=== PATIENT | male | born 1970 | race Caucasian/White ===

== ENCOUNTER 2020-07-04 08:28 | Outpatient (REF) | payer SELFPAY ==
[2020-07-04 08:49] LABS: Chol HDL Ratio 5.08 mg/dL (1.0-5.00); Cholesterol 244 mg/dL (0-200); HDL Cholesterol 48 mg/dL (60-100); LDL Cholesterol Calculated 165 mg/dL (50-129); LDL HDL Ratio 3.44 RATIO (0.00-3.22); Triglycerides 153 mg/dL (0-150)
== END 2020-07-04 08:29 | disposition home or self-care (01) ==
LOC: LAB 08:28
PROVIDERS: Visit Provider Dermatology
DX: Z01.89 Encounter for other specified special examinations (principal)
CPT/HCPCS: 80061

== ENCOUNTER 2025-02-24 14:04 | Emergency (ER) | payer SELFPAY ==
[2025-02-24 14:12] VITALS: BP 170/133; PULSE 64; RESP 16; TEMP 36.9; O2SAT 96; BMI 32.3
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
[2025-02-24 14:30] VITALS: BP 170/133; PULSE 82; O2SAT 95
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
[2025-02-24 15:06] VITALS: BP 160/110; PULSE 82; O2SAT 92
== END 2025-02-24 15:07 | disposition home or self-care (01) ==
PROVIDERS: Emergency Provider Physician Assistant
DX: S46.911A Strain of unspecified muscle, fascia and tendon at shoulder and upper arm level, right arm, initial encounter (principal); V89.2XXA Person injured in unspecified motor-vehicle accident, traffic, initial encounter
CPT/HCPCS: 73030; 99283